=== PATIENT | female | born 1945 | race African-American/Black ===

== ENCOUNTER → 2017-02-02 | Outpatient (CLI) | payer OTHER ==
[~2017-02-02] VITALS: Ht 157.5 cm; Wt 73.7 kg
[~2017-02-02] MED LIST: AGGRENOX 25 MG1 EACH PO; AGGRENOX CAPSU1 EACH PO; ALBUTEROL2.5 MG/0.5 INH; ARTHRITIS PAIN650 M3 PO; CENTRUM SILVER1 EAC4 PO; CYCLOBENZAPRINE5 MG; CYCLOBENZAPRINE5 MG PO; CYMBALTA20 MG PO; FOLIC ACID1 MG PO; HYDROCHLOROTH12.5 MG PO; HYDROCODONE-AP1 EAC6 PO; IOPHEN C NR PO; KLOR-CON20 MEQ PO; MACROBID 100 M100 M1 PO; METHOTREXATE 22.5 MG PO; MOBIC7.5 MG PO; NASACORT10.8 ML NS; NEXIUM40 MG PO; PREDNISONE 5 MG5 MG PO; PROBIOTIC1 EAC1 PO; SIMVASTATIN40 MG PO; SYNTHROID75 MCG PO; TRAMADOL 50 MG50 MG PO; VAGIFEM10 MCG; VALTREX 500 MG500 MG PO; VOLTAREN GEL 1100 G2 TOP; ZOFRAN ODT4 MG PO
--- NOTE | ~2017-02-02 | HPC ---
[facility] [place] [address] PAIN MANAGEMENT CONSULTATION Name: JOSE ENRIQUE MILES Room #: REG JONATHAN Naylor#: [id number] Admission: 02/02/17 Attend Phys: Dg Hou DO Discharge: Date of : 43 Report #: [id number] THIS REPORT FOR: //name// CC: Mark Hou The patient is a delightful 72-year-old female, prior seen in the pain clinic last August for symptomatic lumbar radiculopathy. She was given epidural injection at that time, returns to pain clinic today noting that the prior injection afforded very good transient relief, 60% relief, the pain began to come back in October without antecedent trauma or overuse. Notes pain is primarily low back, bilateral buttock, sharp and constant, rates as a 7/10, exacerbated with climbing stairs, walking and general activity. PHYSICAL EXAMINATION: Shows a pleasant 72-year-old female, BMI is 29.7 kg/m2. Vital signs are stable as noted in the EMR. Rises from chair using armrest. Lumbar flexion is limited to about 60 degrees. Diffuse tenderness across the low back, positive straight leg raise on the left, slight decreased left leg strength. The patient has been off of her Aggrenox for 7 days now. ASSESSMENT: 1. Symptomatic lumbar radiculopathy secondary to spinal stenosis, history of transient ischemic attacks, and component of myofascial pain. 2. Acute exacerbation of lumbar radiculopathy secondary to spinal stenosis. RECOMMENDATION: 1. The patient has been started on Cymbalta 20 mg from her general activities therapist physician, strongly encouraged her to increase to the 30 mg dose, which has also been prescribed. I have taken the liberty of writing for tramadol 50 mg up to 4 times a day with Tylenol. She has had this in the past with some efficacy. She is not taking Meloxicam due to the Aggrenox. Again, hold the Meloxicam due to the Aggrenox, renew tramadol 50 mg up to 4 times a day with Tylenol. She can use this along with the 30 mg Cymbalta, the amount of serotonin reuptake should not put her in nature of serotonin syndrome. 2. Lumbar epidural injection under fluoroscopy today. PROCEDURE: Lumbar epidural steroid injection. PROCEDURE NOTE: After both written and informed consent to include risk of spinal cord damage, increased pain, weakness and dural puncture, the patient was taken to the fluoroscopy suite, placed in the prone position. After sterile prep and drape, a skin wheal with lidocaine was raised. A 22-gauge epidural Tuohy needle was inserted in the midline at L5-S1 with good loss to resistance. Negative aspiration for cerebrospinal fluid or blood was noted. Then 1 mL [address] [address] PAIN MANAGEMENT CONSULTATION Name: JOSE ENRIQUE MILES Room #: REG CLChristine Naylor#: [id number] Admission: 02/02/17 Attend Phys: Dg Hou DO Discharge: Date of : 44 Report #: [id number] Omnipaque under biplanar fluoroscopy showed good spread within the epidural space. This was followed with 80 mg of triamcinolone plus 1 mL of 1.5% preservative-free Xylocaine, 0.5 mL Xylocaine was then injected to flush the needle; it was removed. The patient was monitored for an appropriate period of time and discharged in good and stable condition. Resume Aggrenox tomorrow. Follow up as needed. <ELECTRONICALLY SIGNED> By: Dg Hou DO 02/08/17 0738 1548 0151 Dg Hou DO /nt
[2017-02-02 13:44] VITALS: BP 161/74
== END | disposition home or self-care (01) ==
LOC: PAIN 06:50
DX: M48.06 Spinal stenosis, lumbar region (principal); M79.1 Myalgia; Z86.73 Personal history of transient ischemic attack (TIA), and cerebral infarction without residual deficits; Z87.891 Personal history of nicotine dependence

== ENCOUNTER → 2017-02-10 | Outpatient (CLI) | payer OTHER | LOC: MRI 14:11 | DX: E23.6 Other disorders of pituitary gland (principal); R51 Headache ==

== ENCOUNTER → 2017-02-20 | Outpatient (CLI) | payer OTHER | LOC: RAD 01:56 | DX: Z12.31 Encounter for screening mammogram for malignant neoplasm of breast (principal) ==

== ENCOUNTER → 2017-06-22 | Outpatient (CLI) | payer OTHER ==
[~2017-06-22] VITALS: Ht 157.5 cm; Wt 75.5 kg
--- NOTE | ~2017-06-22 | HPC ---
[facility] [place] [address] PAIN MANAGEMENT CONSULTATION Name: JOSE ENRIQUE MILES Room #: REG JONATHAN Naylor#: [id number] Admission: 06/22/17 Attend Phys: Dg Hou DO Discharge: Date of : 43 Report #: [id number] THIS REPORT FOR: //name// CC: Mark Hou The patient is a 72-year-old female, prior seen in the pain clinic back in January, given epidural injection, off of Aggrenox for 7 days. She returns to pain clinic today noting that injection afforded significant relief of her low back and bilateral (right greater than left) pain. The patient specifically got 80% relief with very little discomfort until April the pain began to recur. She denies antecedent trauma or overuse. She notes the pain is in the low back, right greater than left leg, exacerbated with standing, walking and bending, stairs does seem to exacerbate pain. PHYSICAL EXAMINATION: Shows 72-year-old female, BMI is 30.4 kilograms per meter squared. Blood pressure is modestly elevated 162/76, pulse 64, respirations 16. Rises from chair using armrest, modestly antalgic gait. Grossly positive straight leg raise at 30 degrees on the right. Slight decreased right hip flexion strength. Reviewed diagnostic findings from October 2015 noting grade 1 anterolisthesis at L4-L5 with marked facet changes. ASSESSMENT: Symptomatic lumbar radiculopathy. RECOMMENDATIONS: 1. Epidural injection under fluoroscopy today at L5-S1. 2. Resume Aggrenox tonight. 3. Follow up in 3 weeks for reevaluation. Discontinue Aggrenox for 7 days if symptoms are not completely abated. If however, she is doing well, we will have her simply cancel the appointment in 2 weeks. ASSESSMENT: Symptomatic lumbar radiculopathy secondary to spinal stenosis. PROCEDURE: Lumbar epidural steroid injection under fluoroscopy. PROCEDURE NOTE: After both written and informed consent to include risk of spinal cord damage, increased pain, weakness and dural puncture, the patient was taken to the fluoroscopy suite, placed in the prone position. After sterile prep and drape, a skin wheal with lidocaine was raised. A 22-gauge epidural Tuohy needle was inserted in the midline at L5-S1 with good loss to resistance. Negative aspiration for cerebrospinal fluid or blood was noted. Then 1 mL of Omnipaque under biplanar fluoroscopy showed good spread within the epidural space. This was followed with 80 mg of triamcinolone plus 1 mL of 1.5% preservative-free Xylocaine, 0.5 mL Xylocaine was then injected to flush the [address] [address] PAIN MANAGEMENT CONSULTATION Name: JOSE ENRIQUE MILES Room #: REG [facility] Dayday#: [id number] Admission: 06/22/17 Attend Phys: Dg Hou DO Discharge: Date of : 43 Report #: [id number] needle; it was removed. The patient was monitored for an appropriate period of time and discharged in good and stable condition. <ELECTRONICALLY SIGNED> By: Dg Hou DO 06/26/17 0746 1537 1621 Dg Hou DO /nt
[2017-06-22 12:44] VITALS: BP 162/76
== END | disposition home or self-care (01) ==
LOC: PAIN 02-23 09:21
DX: M54.16 Radiculopathy, lumbar region (principal); Z87.891 Personal history of nicotine dependence; Z79.899 Other long term (current) drug therapy

== ENCOUNTER → 2018-01-25 | Outpatient (CLI) | payer OTHER ==
[~2018-01-25] VITALS: Ht 157.5 cm; Wt 71.5 kg
[~2018-01-25] MED LIST changes: +CLARITIN10 MG PO; -CYMBALTA20 MG PO; +CYMBALTA30 MG PO; +FLONASE 0.05%50 MCG NASAL; +LIPITOR10 MG PO; -NASACORT10.8 ML NS; +NORCO 5-325 TA1 EAC1 PO; +OXYBUTYNIN 5 MG5 M2 PO; +VALACYCLOVIR500 MG PO
--- NOTE | ~2018-01-25 | HPC ---
[facility] [place] [address] PAIN MANAGEMENT CONSULTATION Name: JOSE ENRIQUE MILES Room #: REG JONATHAN Naylor#: [id number] Admission: 01/25/18 Attend Phys: Dg Hou DO Discharge: Date of : 43 Report #: [id number] THIS REPORT FOR: //name// CC: Mark Hou DATE OF SERVICE: 01/25/2018 PAIN CLINIC NOTE The patient is a 73-year-old female, prior seen in the pain clinic on 06/22/2017. She had an epidural injection L5-S1 with good improvement of baseline pain. She specifically notes 75% improvement for several months. 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 She notes pain is gradually coming back the last couple of months, but caring for her mother, she somewhat put off her own care. She notes currently pain is in the low back, bilateral legs, rates it as 7-8 on a VAS. Notes pain is exacerbated with standing, walking and general activity. She does get some relief with medication including tramadol p.r.n. I had last given her a prescription for tramadol 120 tablets with 2 refills nearly a year ago in January 2017. Again, it has been about a year since we last saw her. PHYSICAL EXAMINATION: Shows a 73-year-old female, BMI is 28.8 kilograms per meter squared. Blood pressure 143/66, pulse 66, respiration is 16. She rates her subjective pain score as 7-8 on a VAS. Rises from chair using armrest. New pain is a little different than her prior radicular pain which is more in the back. This pain is more in the left groin it is in an L3 pattern. She has a modestly antalgic gait. Left hip flexion strength is limited compared to the right. Passive rotation of the hip does exacerbate some pain as well. Gait is mildly ataxic. We reviewed her older MRI from October 2015 noting increasing subluxation of L4 on L5 with fairly significant stenosis at L3-L4 and L4-L5. (This had been compared to a prior study of 11/27/2014). With ongoing radicular symptoms, we have elected to request repeat MRI of the lumbar spine. Epidural injection under fluoroscopy, we will try a little higher level, prior injections at L5-S1 had helped with more L5 radicular pain with this new pain in the left groin. We will move forward with L3-L4 epidural injection under fluoroscopy. Follow up in 2 weeks for reevaluation. A note is made the patient has been offer Aggrenox for [address] [address] PAIN MANAGEMENT CONSULTATION Name: MILESJOSE ENRIQUE Room #: REG JONATHAN Naylor#: [id number] Admission: 01/25/18 Attend Phys: Dg Hou DO Discharge: Date of : 43 Report #: [id number] ASSESSMENT: Symptomatic lumbar radiculopathy secondary to spinal stenosis. PROCEDURE: Lumbar epidural injection under fluoroscopy. PROCEDURE NOTE: After both written and informed consent to include risk of spinal cord damage, increased pain, weakness and dural puncture, the patient was taken to the fluoroscopy suite, placed in the prone position. After sterile prep and drape, a skin wheal with lidocaine was raised. A 22-gauge epidural Tuohy needle was inserted in the midline at L3-L4 with good loss to resistance. Negative aspiration for cerebrospinal fluid or blood was noted. Then 1 mL of Omnipaque under biplanar fluoroscopy showed good spread within the epidural space. This was followed with 80 mg of triamcinolone plus 1 mL of 1.5% preservative-free Xylocaine, 0.5 mL Xylocaine was then injected to flush the needle; it was removed. The patient was monitored for an appropriate period of time and discharged in good and stable condition. The patient discharged in good and stable condition. Told to resume Aggrenox today. MRI next week if she does not get significant improvement with today's injection. <ELECTRONICALLY SIGNED> By: Dg Hou DO 01/26/18 0704 1539 2236 Dg Hou DO /nt
[2018-01-25 12:56] VITALS: BP 143/66
== END | disposition home or self-care (01) ==
LOC: PAIN 06:52
DX: M48.061 Spinal stenosis, lumbar region without neurogenic claudication (principal); G89.29 Other chronic pain; Z98.890 Other specified postprocedural states; Z87.891 Personal history of nicotine dependence; Z79.899 Other long term (current) drug therapy

== ENCOUNTER → 2018-02-07 | Outpatient (CLI) | payer OTHER | LOC: MRI 11:43 | DX: M47.896 Other spondylosis, lumbar region (principal); G89.29 Other chronic pain; N28.1 Cyst of kidney, acquired ==

== ENCOUNTER → 2018-03-01 | Outpatient (CLI) | payer OTHER ==
[~2018-03-01] MED LIST changes: -LIPITOR10 MG PO; -NORCO 5-325 TA1 EAC1 PO; -OXYBUTYNIN 5 MG5 M2 PO; -VALACYCLOVIR500 MG PO
== END ==
LOC: RAD 00:26
DX: Z12.31 Encounter for screening mammogram for malignant neoplasm of breast (principal)

== ENCOUNTER → 2018-03-14 | Outpatient (CLI) | payer OTHER | LOC: RAD 12:01 | DX: J47.9 Bronchiectasis, uncomplicated (principal) ==

== ENCOUNTER → 2018-05-25 | Outpatient (CLI) | payer OTHER ==
[~2018-05-25] VITALS: Ht 157.5 cm; Wt 71.2 kg
[~2018-05-25] MED LIST changes: +NORCO 5-325 TA1 EAC1 PO
--- NOTE | ~2018-05-25 | HPC ---
[facility] [place] [address] PAIN MANAGEMENT CONSULTATION Name: JOSE ENRIQUE MILES Room #: REG EMERALDChristine Robin.#: [id number] Admission: 05/25/18 Attend Phys: Dg Hou DO Discharge: Date of : 43 Report #: [id number] THIS REPORT FOR: //name// CC: Mark Hou The patient is a 73-year-old female, last seen in the pain clinic on 02/16/2018, given epidural injection at that time. She returns to the pain clinic today noting that the prior injection afforded very good relief, per the patient some 80% relief for several months. Pain has gradually begun to recur without antecedent trauma and overuse. Pain is in the low back, buttock and leg, radiates into the left groin down to the ankle, exacerbated with standing and walking, rates as 7.5 on a VAS. PHYSICAL EXAMINATION: Shows pleasant 73-year-old female, BMI is 28.7 kilograms per meter squared. Vital signs stable as noted in the EMR. Rises from chair using armrest. Modestly antalgic gait. Grossly positive straight leg raise at 30 degrees on the left, slight decreased left hip flexion strength. ASSESSMENT: Symptomatic lumbar radiculopathy by clinical exam and history. RECOMMENDATIONS: 1. We will refer the patient for physical therapy for home exercise regimen to include core stability and leg strengthening. 2. Epidural injection under fluoroscopy today. 3. Continue current medication unchanged including tramadol as needed for pain, in fact, I have taken the liberty of writing for small course of hydrocodone 5/325, limit 45 tablets to take as needed for significant pain. ASSESSMENT: Symptomatic lumbar radiculopathy secondary to spinal stenosis. PROCEDURE: Lumbar epidural injection under fluoroscopy. PROCEDURE NOTE: After both written and informed consent to include risk of spinal cord damage, increased pain, weakness and dural puncture, the patient was taken to the fluoroscopy suite, placed in the prone position. After sterile prep and drape, a skin wheal with lidocaine was raised. A 22-gauge epidural Tuohy needle was inserted in the midline at L3-L4 with good loss to resistance. Negative aspiration for cerebrospinal fluid or blood was noted. Then 1 mL of Omnipaque under biplanar fluoroscopy showed good spread within the epidural space. This was followed with 80 mg of triamcinolone plus 1 mL of 1.5% preservative-free Xylocaine, 0.5 mL Xylocaine was then injected to flush the [address] [address] PAIN MANAGEMENT CONSULTATION Name: JOSE ENRIQUE MILES Room #: REG [facility] Dayday#: [id number] Admission: 05/25/18 Attend Phys: Dg Hou DO Discharge: Date of : 43 Report #: [id number] needle; it was removed. The patient was monitored for an appropriate period of time and discharged in good and stable condition. <ELECTRONICALLY SIGNED> By: Dg Hou DO 05/28/18 0659 1200 [id number] Dg Hou DO /nt
[2018-05-25 11:07] VITALS: BP 155/72
== END | disposition home or self-care (01) ==
LOC: PAIN
DX: M54.16 Radiculopathy, lumbar region (principal); M48.061 Spinal stenosis, lumbar region without neurogenic claudication; Z79.899 Other long term (current) drug therapy; Z79.51 Long term (current) use of inhaled steroids; Z87.891 Personal history of nicotine dependence

== ENCOUNTER → 2018-08-10 | Outpatient (CLI) | payer OTHER ==
[~2018-08-10] VITALS: Ht 157.5 cm; Wt 72.1 kg
[~2018-08-10] MED LIST changes: +LIPITOR10 MG PO; +OXYBUTYNIN 5 MG5 M2 PO; +VALACYCLOVIR500 MG PO
--- NOTE | ~2018-08-10 | HPC ---
[facility] [address] [place] [address] PAIN MANAGEMENT CONSULTATION Name: JOSE ENRIQUE MILES Room #: REG JONATHAN Dayday#: [id number] Admission: 08/10/18 Attend Phys: Addis Haskins MD Discharge: Date of : 43 Report #: [id number] THIS REPORT FOR: //name// CC: Mark Haskins DATE OF SERVICE: 08/10/2018 CHIEF COMPLAINT: Right lower back and leg pain. HISTORY OF PRESENT ILLNESS: The patient is a 73-year-old female who has been followed in the pain clinic. She has been followed by Dr. Dg Hou. This is my first visit with the patient. She returns to the pain clinic today with pain and discomfort involving her low back and right leg. She has had pain that is radiating down into the lower back, buttocks and has rated it as high as 7.5. Her pain has progressively gotten worse over the years. She has undergone epidural steroid injections in the past and noted some benefit from these. She has had cramping sensation down in her calf. 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 Lifting and doing these activities exacerbate her discomfort. Notes her pain is worse when she wakes in the morning. Standing and walking are problematic. She does try to exercise and do stretches which have been provided by a book which she has been reviewing. She has undergone physical therapy. Notes that she has continued to have pain in both lower extremities and in her hips. ALLERGIES: No known drug allergies. MEDICATIONS: Ultram 50 mg q.i.d., Claritin 10 mg, Cymbalta 30 mg, multivitamins, Centrum Silver, Aggrenox 25/200 mg capsules, arthritis release 650 mg, Tylenol, Flonase 0.05%, albuterol 2.5/0.5 mL, Voltaren gel 1% to hands q.i.d., Flexeril 5 mg, potassium 20 mEq, Zocor 40 mg, levothyroxine 75 mcg, folic acid 1 mg, Nexium 40 mg, methotrexate 2.5 mg. PAST MEDICAL HISTORY: Rheumatoid arthritis, hypothyroidism, ____, GERD, asthma, status post TIA. PAST SURGICAL HISTORY: Tonsillectomy 1971, hysterectomy in 12/08/1986. SOCIAL HISTORY: She is retired. REVIEW OF SYSTEMS: Night sweats, wears glasses, cataracts, ear aches, TIA, insomnia. PAIN CLINIC ASSESSMENT: 1. Osteoarthritis. The patient is not being treated for osteoarthritis, [place] [address] PAIN MANAGEMENT CONSULTATION Name: JOSE ENRIQUE MILES Room #: REG [facility].#: [id number] Admission: 08/10/18 Attend Phys: Addis Haskins MD Discharge: Date of : 43 Report #: [id number] have rheumatoid arthritis. 2. Vital Signs: Blood pressure 164/70, heart rate is 58, respiratory rate 16, room air saturations 100%. Pain intensity 8-9/10. 3. Fall history: The patient has not fallen in the last 3 months. 4. Blood thinner. The patient is on Aggrenox, has had transient ischemic attack. 5. Hypertension. The patient is being treated for hypertension. 6. Tobacco: The patient denies use of tobacco, alcohol. The patient denies use of alcoholic beverages. Height was 5 feet 2-1/2 inches, weight 163 pounds. PHYSICAL EXAMINATION: GENERAL: The patient is a well-developed, well-nourished white female. No apparent distress. HEENT: Normocephalic, atraumatic. Extraocular eye muscles intact. Sclerae nonicteric. Mucous membranes moist. NECK: Supple. HEART: Regular rate and rhythm. PULMONARY: No respiratory distress. ABDOMEN: Nontender. EXTREMITIES: The patient has pain and discomfort radiating down into her legs bilaterally. Positive straight leg raise on the right. IMPRESSION: 1. Lumbar radiculopathy. 2. Rheumatoid arthritis. 3. Hypothyroidism. 4. ____. 5. GERD. 6. Asthma. 7. Status post TIA. RECOMMENDATIONS: We discussed treatment options with the patient. Risks and benefits of an epidural steroid injection were discussed. Possible complications of the procedure were reviewed. They could include, but are not limited to infection, increased muscle soreness, headache, bleeding, worsening of pain, no improvement in pain. The patient elects to proceed. PROCEDURE NOTE: The patient was placed on the examination table. Her back was sterilely prepped with a Betadine solution. A 0.25% bupivacaine was infiltrated. A 17-gauge Tuohy with loss of resistance technique was used to gain access of the epidural space. There was no CSF, heme or paresthesia. A total of 80 mg Depo-Medrol, 40 mg triamcinolone were infiltrated at the right paracentral location of needle. The patient tolerated the procedure well. There were no complications. She will followup in the future as needed. We [address] [address] PAIN MANAGEMENT CONSULTATION Name: JOSE ENRIQUE MILES Room #: ALEKSANDR Naylor#: [id number] Admission: 08/10/18 Attend Phys: Addis Haskins MD Discharge: Date of : 43 Report #: [id number] would like to thank you for letting us participate in her care. We hope she continues to improve. <ELECTRONICALLY SIGNED> By: Addis Haskins MD 09/03/18 1124 0849 1154 Addis Haskins MD /[facility]
[2018-08-10 12:41] VITALS: BP 162/67
== END | disposition home or self-care (01) ==
LOC: PAIN 07:05
DX: M54.16 Radiculopathy, lumbar region (principal); G89.29 Other chronic pain; Z87.891 Personal history of nicotine dependence; Z79.899 Other long term (current) drug therapy

== ENCOUNTER → 2018-10-17 | Outpatient (CLI) | payer OTHER ==
[~2018-10-17] VITALS: Ht 160 cm; Wt 74.3 kg
[2018-10-17 13:59] VITALS: BP 149/70
== END ==
LOC: PAIN 05:55
DX: M54.5 Low back pain (principal); M25.551 Pain in right hip; M25.552 Pain in left hip; Z79.899 Other long term (current) drug therapy

== ENCOUNTER → 2018-11-28 | Outpatient (CLI) | payer OTHER | LOC: CAT 08:42 | DX: J32.9 Chronic sinusitis, unspecified (principal) ==

== ENCOUNTER → 2018-12-05 | Outpatient (CLI) | payer OTHER ==
[~2018-12-05] VITALS: Ht 152.4 cm; Wt 75.8 kg
[~2018-12-05] MED LIST changes: +CALCIUM 600 +1 EAC1 PO; +VITAMINC500 PO
--- NOTE | ~2018-12-05 | HPC ---
[address] [place] [address] PAIN MANAGEMENT CONSULTATION Name: JOSE ENRIQUE MILES Room #: REG EMERALDChristine Naylor#: [id number] Admission: 12/05/18 Attend Phys: Addis Haskins MD Discharge: Date of : 43 Report #: [id number] THIS REPORT FOR: //name// CC: Mark Haskins DATE OF SERVICE: 12/05/2018 CHIEF COMPLAINT: Return for another injection. The pain has been doing well for a number of months. FOLLOWUP HISTORY: The patient is a 73-year-old female who has been followed in the pain clinic because of lumbar radiculopathy. She returns today indicating that the epidural steroid injection, which she received in July has continued to be beneficial. She notes now that her pain is beginning to start increasing. Overall, things have been going relatively well. She has been having pain that radiated down into her buttocks. She feels that the pain now has risen to the level of about 7.5. This was the level where it was when she underwent an epidural steroid injection. She feels that now she continues to have pain in the lower portion of her back. It radiates down into both the left and the right buttocks. Left seems to be more problematic. This also progresses down to the level of her calf. She notes that the pain is exacerbated by climbing stairs, standing for a prolonged period of time, walking as well as other activities. Notes that medications, rest and hot showers can be influenced and in decreasing her discomfort for some time. Overall, she has had no complication from the last injection and would like to proceed with an injection today. ALLERGIES: No known drug allergies. CURRENT MEDICATIONS: Ultram 50 mg q.i.d., Claritin 10 mg, Cymbalta 30 mg, multivitamins, Centrum Silver, Aggrenox 25/200 mg capsules, arthritis released, Tylenol 650 mg, Flonase 0.05%, albuterol 2.5/0.5 meals, Voltaren gel 1% to the hands q.i.d., Flexeril 5 mg, potassium 20 mEq, Zocor 40 mg, levothyroxine 75 mcg, and folic acid 1 mg, Nexium 40 mg, methotrexate 2.5 mg. PAIN CLINIC ASSESSMENT/PQRS: 1. Osteoarthritis. The patient is being treated for osteoarthritis or rheumatoid arthritis. Pain intensity 7.5/10. 2. Fall risk. The patient has not fallen in the last 3 months. 3. Height 5 feet 0 inches, BMI is 32, weight 167 pounds. Blood pressure 141/65, pulse 57, respiratory rate 16, room air saturation is 100%. 4. Blood thinner. The patient is on a blood thinning medication aspirin/dipyridamole (Aggrenox). 5. Hypertension. The patient is being treated for hypertension. 6. Opioid greater than 6 weeks. The patient is receiving tramadol on a regular [address] [address] PAIN MANAGEMENT CONSULTATION Name: JOSE ENRIQUE MILES Room #: REG Christine Naylor#: [id number] Admission: 12/05/18 Attend Phys: Addis Haskins MD Discharge: Date of : 43 Report #: [id number] basis. 7. Risk assessment tool for opioids low. 8. Functional assessment tool . 9. Recreational drug use. The patient denies use of recreational drugs. 10. Tobacco: The patient never smoked: The patient is a former smoker. 11. Alcohol: The patient denies use of alcoholic beverages. PHYSICAL EXAMINATION: GENERAL: The patient is a well-developed well-nourished black female. Her affect is appropriate. Speech is fluent. HEAD, EYES, EARS, NOSE, AND THROAT: Normocephalic, atraumatic. Extraocular eye muscles intact. Sclerae is nonicteric. Mucous membranes are moist. NECK: Without adenopathy or JVD. The patient was wearing glasses. HEART: Regular rate. S1, S2, without pulmonary complaints. LUNGS: Clear to auscultation. ABDOMEN: Nontender. Bowel sounds present. EXTREMITIES: Upper extremity muscle strength is judged to be 5-/5 for the major muscle groups. Lower extremity muscle strength in the legs showed to be 5-/5 for the mid lower extremity. The patient does walk with a cane. Has pain and discomfort in the posterior portion of her legs with radiation down into both legs involving the calf. Positive straight leg raises. IMPRESSION: 1. History of lumbar radiculopathy. 2. Rheumatoid arthritis. 3. Hypothyroidism. 4. Gastroesophageal reflux. 5. Asthma. 6. Post-transient ischemic attack. RECOMMENDATIONS: We discussed treatment options with the patient. Risks and benefits of an epidural steroid injection were discussed. Possible complications of the procedure, which could include but are not limited to infection, worsening of pain, no improvement in pain, nerve damage, spinal headache. The patient elects to proceed. PROCEDURE NOTE: The patient was taken to the procedure area. She was assisted in getting on the examination table. She was placed in the prone position. Fluoroscopy using anterior, posterior as well as lateral viewing were implemented. Her back was sterilely prepped with a Betadine solution. A 0.25% bupivacaine was infiltrated in the L5-S1 area on the right side. A midline approach was used. A 0.25% bupivacaine was infiltrated. A 17-gauge Tuohy with loss of resistance technique was used to gain access to the epidural space after appropriate placement. There was no CSF, heme or paresthesia. Total of 80 mg Depo-Medrol, 40 mg triamcinolone and 2 mL of 0.25% bupivacaine was injected. The patient tolerated the procedure well. There were no complications. We hope [address] [address] PAIN MANAGEMENT CONSULTATION Name: MILESJOSE ENRIQUE [id number] Admission: 12/05/18 Attend Phys: Addis Haskins MD Discharge: Date of : 43 Report #: [id number] she continues to improve. A script for tramadol 50 mg 1 p.o. q.i.d. has been written. We would like to thank you for letting us to participate in her care and 2 refills of tramadol were provided. By: [id number] Addis Haskins MD /BOBBY
[2018-12-05 11:02] VITALS: BP 141/65
--- NOTE | 2018-12-05 11:09 | NUR ---
Pain Clinic Assessment: 1. History of Osteoarthritis: Not Applicable History of Rheumatoid Arthritis: Not Applicable 2. Height: 5 ft. in. 152.4 cm. Weight: 167.0 lb. oz. 75.751 kg. Patient's BMI: 32.6 3. Vital Signs: BP: 141/65 Pulse: 67 Resp: 16 Temp: 02 Sat: 100 ECG Mon: 4. Pain Intensity: 7.5 5. Fall Risk: Dizziness: N Needs help standing or walking: N Fallen in the last 3 months: N Fall risk comments: 6. Patient on Blood Thinner: ASA/Dipyridamole(Aggrenox 7. History of Hypertension: Y 8. Opioid Therapy greater than 6 weeks: N Opiate Contract Signed: 9. Risk Assessment Tool Provided: LOW-1 10. Functional Assessment Tool: 11. Recreational Drug Use: Never Drug Type: Tobacco Use: Former Smoker Tobacco Type: Amount or Packs/day: How Many Years: Alcohol Use: No Frequency: Quant:
== END | disposition home or self-care (01) ==
LOC: PAIN 07:17
DX: M54.16 Radiculopathy, lumbar region (principal); G89.29 Other chronic pain; I10 Essential (primary) hypertension; M06.9 Rheumatoid arthritis, unspecified; E03.9 Hypothyroidism, unspecified; K21.9 Gastro-esophageal reflux disease without esophagitis; J45.909 Unspecified asthma, uncomplicated; Z86.73 Personal history of transient ischemic attack (TIA), and cerebral infarction without residual deficits; Z98.890 Other specified postprocedural states; Z79.899 Other long term (current) drug therapy; Z79.01 Long term (current) use of anticoagulants; Z87.891 Personal history of nicotine dependence; Z79.891 Long term (current) use of opiate analgesic

== ENCOUNTER → 2019-03-04 | Outpatient (CLI) | payer OTHER ==
[~2019-03-04] MED LIST changes: +APAP650 PO; +HYDROCODONE-AP1 EA11 PO
== END ==
LOC: RAD 03:15
DX: Z12.31 Encounter for screening mammogram for malignant neoplasm of breast (principal)

== ENCOUNTER → 2019-03-06 | Outpatient (CLI) | payer OTHER ==
[~2019-03-06] VITALS: Ht 157.5 cm; Wt 75.6 kg
--- NOTE | ~2019-03-06 | HPC ---
[facility] [address] [place] [address] PAIN MANAGEMENT CONSULTATION Name: JOSE ENRIQUE MILES Room #: REG EMERALDChristine Naylor#: [id number] Admission: 03/06/19 ������������������ Attend Phys: Addis Haskins MD Discharge: ������������������ Date of : 43 Report #: [id number] THIS REPORT FOR: //name// CC: Mark Haskins DATE OF SERVICE: 03/06/2019 FOLLOWUP HISTORY: "I would like to get another injection. It was helpful." HISTORY: The patient is a 74-year-old female who has been followed in the Pain Clinic because of chronic low back pain. She has undergone epidural steroid injections and found them beneficial. She returns today with a desire to undergo another epidural steroid injection. She is having pain and discomfort that is radiating down in the low portion of her back, in the left as well as the right leg. Both calves are involved. She feels that the tramadol is not as effective. She would like to see whether use of hydrocodone could be more effective. ALLERGIES: No known drug allergies. CURRENT MEDICATIONS: Ultram 50 mg q.i.d., Claritin 10 mg, Cymbalta 30 mg, multivitamin, Centrum Silver, Aggrenox 25/200 capsules, Arthritis Relief Tylenol 650 mg, Flonase 0.05%, albuterol 2.5/0.5 with meals, Voltaren gel 1% to the hands q.i.d., Flexeril 5 mg, potassium 20 mEq, Zocor 40 mg, levothyroxine 75 mcg, folic acid 1 mg, Nexium 40 mg, and methotrexate 2.5. PAIN CLINIC ASSESSMENT/PQRS: 1. The patient is not being treated for osteoarthritis ____ rheumatoid arthritis. 2. Height 5 feet 2 inches, weight 166 pounds, BMI is 30.5. 3. Vital signs: Blood pressure 155/65, pulse 63, respiratory rate 16, room air saturation 100%. 4. Pain intensity: 8/10. 5. Fall risk: The patient has not fallen in the last 3 months. 6. Blood thinner: The patient is on aspirin/dipyridamole (Aggrenox). 7. History of hypertension: The patient is being treated for hypertension. 8. Opioids greater than 6 weeks: The patient receives her medication from one source, [facility] Clinic. She is using tramadol. 9. Risk assessment tool: Low for opioid use. 10. Functional assessment tool: . 11. Recreational drug use. The patient denies use of recreational drugs. 12. Tobacco: The patient denies use of tobacco. PHYSICAL EXAMINATION: GENERAL: The patient is a well-developed, well-nourished black female. She [address] [address] PAIN MANAGEMENT CONSULTATION Name: MILESJOSE ENRIQUE Room #: REG JONATHAN Naylor#: [id number] Admission: 03/06/19 ������������������ Attend Phys: Addis Haskins MD Discharge: ������������������ Date of : 43 Report #: [id number] appears her stated age. She is alert and oriented x 3. Affect is appropriate. Speech is fluent. HEENT: Normocephalic, atraumatic. Extraocular eye muscles intact. Sclerae nonicteric. Mucous membranes are moist. The patient is wearing glasses. NECK: Without adenopathy or JVD. HEART: Regular rate. S1 and S2. LUNGS: Clear to auscultation. ABDOMEN: Nontender. Bowel sounds present. MUSCULOSKELETAL: Upper extremity muscle strength judged to be 5-/5 for the major muscle groups in the upper extremity. The patient has been walking with a cane. She complains of some pain and discomfort in the posterior portion of her legs with radiation down into both legs in the L5-S1 area. She has positive straight leg raises. IMPRESSION: 1. History of lumbar radiculopathy, L5-S1. 2. Rheumatoid arthritis. 3. Hypothyroidism. 4. Gastroesophageal reflux. 5. Asthma. 6. Post transient ischemic attack. RECOMMENDATIONS: We discussed treatment options with the patient. Risks and benefits of an epidural steroid injection in the lumbar area were discussed. Possible complications of the procedure which could include but are not limited to infection, worsening pain, no improvement in pain were discussed, and the patient elects to proceed. PROCEDURE NOTE: The patient was taken to the procedure area. She was assisted in getting on the examination table. Her back was sterilely prepped with a Betadine solution. At the L5-S1 area, 0.25% bupivacaine was infiltrated using a 25-gauge needle. The anterior, posterior as well as lateral viewing with fluoroscopy was undertaken. After the L5-S1 area had been infiltrated, a 17-gauge Tuohy with loss of resistance technique was used to gain access to the epidural space. There was no CSF, heme or paresthesia. Aspiration was negative. A total of 80 mg Depo-Medrol, 40 mg triamcinolone and 2 mL of 0.25% bupivacaine was injected. The patient tolerated the procedure well. She remained in the Pain Clinic for an appropriate amount of time. A total of about 15 seconds fluoroscopy time was used. The patient has been given a script for hydrocodone 7.5 mg. She will take 1 tablet per day. Hopefully, this will help her during those times that her pain is quite problematic. [address] [address] PAIN MANAGEMENT CONSULTATION Name: JOSE ENRIQUE MILES Room #: REG [facility] Dayday#: [id number] Admission: 03/06/19 ������������������ Attend Phys: Addis Haskins MD Discharge: ������������������ Date of : 43 Report #: [id number] We would like to thank you for letting us participate in her care. We hope she continues to improve. ��������������������������������������������� ���������������������������������������� By: ��������������������������������������������� 1458 0039 Addis Haskins MD /pnocho
[2019-03-06 11:10] VITALS: BP 155/63
--- NOTE | 2019-03-06 11:35 | NUR ---
Pain Clinic Assessment: 1. History of Osteoarthritis: Not Applicable History of Rheumatoid Arthritis: Not Applicable 2. Height: 5 ft. 2 in. 157.5 cm. Weight: 166.6 lb. oz. 75.569 kg. Patient's BMI: 30.5 3. Vital Signs: BP: 155/63 Pulse: 63 Resp: 16 Temp: 02 Sat: 100 ECG Mon: 4. Pain Intensity: 8-9 5. Fall Risk: Dizziness: N Needs help standing or walking: Y Fallen in the last 3 months: N Fall risk comments: 6. Patient on Blood Thinner: ASA/Dipyridamole(Aggrenox 7. History of Hypertension: Y 8. Opioid Therapy greater than 6 weeks: N Opiate Contract Signed: 9. Risk Assessment Tool Provided: LOW-1 10. Functional Assessment Tool: 11. Recreational Drug Use: Never Drug Type: Tobacco Use: Former Smoker Tobacco Type: Amount or Packs/day: How Many Years: Alcohol Use: No Frequency: Quant:
== END | disposition home or self-care (01) ==
LOC: PAIN 06:58
DX: M54.16 Radiculopathy, lumbar region (principal); G89.29 Other chronic pain; M06.9 Rheumatoid arthritis, unspecified; E03.9 Hypothyroidism, unspecified; K21.9 Gastro-esophageal reflux disease without esophagitis; J45.909 Unspecified asthma, uncomplicated; Z86.73 Personal history of transient ischemic attack (TIA), and cerebral infarction without residual deficits; Z79.899 Other long term (current) drug therapy; Z79.82 Long term (current) use of aspirin; Z98.890 Other specified postprocedural states

== ENCOUNTER → 2019-08-16 | Outpatient (CLI) | payer OTHER ==
[~2019-08-16] VITALS: Ht 157.5 cm; Wt 74.4 kg
[2019-08-16 11:13] VITALS: BP 139/56
--- NOTE | 2019-08-16 11:14 | NUR ---
Pain Clinic Assessment: 1. History of Osteoarthritis: SPINE HIPS History of Rheumatoid Arthritis: DENIES 2. Height: 5 ft. 2 in. 157.5 cm. Weight: 164.0 lb. oz. 74.390 kg. Patient's BMI: 30.0 3. Vital Signs: BP: 139/56 Pulse: 62 Resp: 14 Temp: 02 Sat: 99 ECG Mon: 4. Pain Intensity: 8 5. Fall Risk: Dizziness: N Needs help standing or walking: N Fallen in the last 3 months: N Fall risk comments: 6. Patient on Blood Thinner: ASA/Dipyridamole(Aggrenox 7. History of Hypertension: Y 8. Opioid Therapy greater than 6 weeks: N Opiate Contract Signed: 9. Risk Assessment Tool Provided: LOW-1 10. Functional Assessment Tool: 11. Recreational Drug Use: Never Drug Type: Tobacco Use: Former Smoker Tobacco Type: Amount or Packs/day: How Many Years: Alcohol Use: No Frequency: Quant:
--- NOTE | 2019-08-30 08:26 | HPC ---
[facility] [address] [place] [address] PAIN MANAGEMENT CONSULTATION Name: JOSE ENRIQUE MILES Room #: REG JONATHAN Dayday#: [id number] Admission: 08/16/19 Attend Phys: Addis Haskins MD Discharge: Date of : 43 Report #: [id number] THIS REPORT FOR: //name// CC: Mark Haskins DATE OF SERVICE: 08/16/2019 CHIEF COMPLAINT: "Pain in the lower back and down into the legs has returned. I have been off the Aggrenox for 7 days. I would like to get another injection." HISTORY: The patient is a 74-year-old female who has been followed in the pain clinic. As you recall, she suffers from lumbar radiculopathy. Epidural injections have been beneficial. She has noted in the last few weeks some increased amount of pain. She has returned today with the hopes of undergoing another epidural steroid injection to improve her level of comfort. She has had no complication from the past injections. As you recall, her mother some time ago. She is more independent at this point because she does not have to take care of her mother, but still has pain and some discomfort. She feels that tramadol is helpful in decreasing her pain and has used hydrocodone on occasion as well. She would like to have these medications renewed. ALLERGIES: No known drug allergies. CURRENT MEDICATIONS: Ultram 50 mg 1 p.o. q.i.d., Claritin 10 mg, Cymbalta 30 mg, multivitamin, Centrum Silver, Aggrenox 225/200 mg, arthritis relief Tylenol 650 mg, Flonase 0.05% albuterol 2.5/0.5 with meals, Voltaren gel 1% to the hands q.i.d., Flexeril 5 mg, potassium 20 mEq, Zocor 40 mg, levothyroxine 75 mg, folic acid 1 mg, Nexium 40 mg, methotrexate 2.5 mg. PAIN CLINIC ASSESSMENT AND PQRS: 1. The patient is not being treated for osteoarthritis or rheumatoid arthritis. 2. Height 5 feet 2 inches, weight 164 pounds, BMI is 30. 3. Vital signs: Blood pressure 139/56, pulse 62, respiratory rate 14, room air saturation 99%. 4. Pain intensity 06/29. 5. Fall history: The patient has not fallen in the last 3 months. 6. Blood thinner. The patient is on a blood thinning medication, Aggrenox. She has stopped taking this medication with the thoughts of undergoing an epidural injection. 7. Hypertension. The patient is being treated for hypertension. 8. Opioids greater than 6 weeks. The patient uses some opioid medications on a limited basis. 9. Risk assessment tool, low for opioid use. 10. Functional assessment tool . [address] [address] PAIN MANAGEMENT CONSULTATION Name: SAM MILESGENIE Osuna Room #: REG JONATHAN Naylor#: [id number] Admission: 08/16/19 Attend Phys: Addis Haskins MD Discharge: Date of : 43 Report #: [id number] 11. Recreational drug use. The patient denies. 12. Tobacco: The patient is a former smoker. 13. Alcohol. The patient denies use of alcoholic beverages. PHYSICAL EXAMINATION: GENERAL: The patient is a well-developed, well-nourished black female. She is alert and oriented x 3. Her affect is appropriate. Speech is fluent. HEENT: Normocephalic, atraumatic. Extraocular eye muscles intact. The patient wears glasses. NECK: Without adenopathy or JVD. HEART: Regular rate. S1, S2. LUNGS: Clear to auscultation. ABDOMEN: Nontender. Bowel sounds present. MUSCULOSKELETAL: Upper extremities: Upper extremity muscle strength judged to be 5/5 for the major muscle groups in the upper extremity. The patient has some pain and discomfort. In the past, she did walk with a cane. She is having pain that is radiating down into the lower portion of her back and into both legs in the L5-S1 dermatomal distribution. Straight leg raises are positive. IMPRESSION: 1. History of lumbar radiculopathy, L5-S1. 2. Rheumatoid arthritis. 3. Hypothyroidism. 4. Gastroesophageal reflux. 5. Asthma. 6. Transient ischemic attack. RECOMMENDATIONS: We discussed treatment options with the patient. Risks and benefits of an epidural steroid injection were discussed. They include but are not limited to infection, worsening pain, no improvement in pain, nerve damage, muscles discomfort and the patient elects to proceed. PROCEDURE NOTE: The patient was taken to the procedure area. She was then assisted in getting on the examination table. Her back was sterilely prepped with a Betadine solution. At the L5-S1 area, 0.25% bupivacaine was infiltrated using a 25-gauge needle. The anterior and posterior areas were viewed using fluoroscopy. After appropriate positioning 0.25% bupivacaine was infiltrated in the L5-S1 area. A 17-gauge Tuohy with loss of resistance technique was then again advanced without evidence of CSF, heme or paresthesia. A total of 80 mg Depo-Medrol, 40 mg triamcinolone and 2 mL of 0.25% bupivacaine was injected. The patient tolerated the procedure well. There were no complications. Approximately 12 seconds fluoroscopy time was about approximately 12 seconds fluoroscopy time was used. The patient's pain decreased to 8 at the time of discharge. She will follow up in the future as needed. [facility] [address] [place] [address] PAIN MANAGEMENT CONSULTATION Name: JOSE ENRIQUE MILES Room #: REG [facility] Dayday#: [id number] Admission: 08/16/19 Attend Phys: Addis Haskins MD Discharge: Date of : 43 Report #: [id number] We would like to thank you for letting us participate in her care. We hope she continues to improve. <ELECTRONICALLY SIGNED> By: Addis Haskins MD 08/30/19 0826 [id number] [id number] Addis Haskins MD /nt
== END | disposition home or self-care (01) ==
LOC: PAIN 06:55
DX: M54.5 Low back pain (principal); M54.16 Radiculopathy, lumbar region; G89.29 Other chronic pain; I10 Essential (primary) hypertension; E03.9 Hypothyroidism, unspecified; M06.9 Rheumatoid arthritis, unspecified; K21.9 Gastro-esophageal reflux disease without esophagitis; J45.909 Unspecified asthma, uncomplicated; Z86.73 Personal history of transient ischemic attack (TIA), and cerebral infarction without residual deficits; Z98.890 Other specified postprocedural states; Z79.899 Other long term (current) drug therapy; Z79.891 Long term (current) use of opiate analgesic

== ENCOUNTER → 2019-10-21 | Outpatient (CLI) | payer OTHER | LOC: NUC 10-14 14:43 | DX: R07.9 Chest pain, unspecified (principal); I10 Essential (primary) hypertension; M06.9 Rheumatoid arthritis, unspecified; E78.5 Hyperlipidemia, unspecified; Z87.891 Personal history of nicotine dependence; Z79.899 Other long term (current) drug therapy ==

== ENCOUNTER → 2019-10-23 | Outpatient (CLI) | payer OTHER | LOC: ULTRA 10:06 | DX: N63.12 Unspecified lump in the right breast, upper inner quadrant (principal) ==

== ENCOUNTER → 2020-01-10 | Outpatient (CLI) | payer OTHER ==
[~2020-01-10] VITALS: Ht 157.5 cm; Wt 78.7 kg
[~2020-01-10] MED LIST changes: +HYDROCODON-ACE1 EAC8 PO; +PROLIA60 MG/1 ML SUBQ
[2020-01-10 11:38] VITALS: BP 123/61
--- NOTE | 2020-01-10 12:10 | NUR ---
Pain Clinic Assessment: 1. History of Osteoarthritis: SPINE HIPS History of Rheumatoid Arthritis: DENIES 2. Height: 5 ft. 2 in. 157.5 cm. Weight: 173.6 lb. oz. 78.744 kg. Patient's BMI: 31.7 3. Vital Signs: BP: 123/61 Pulse: 68 Resp: 14 Temp: 02 Sat: 100 ECG Mon: 4. Pain Intensity: 9 5. Fall Risk: Dizziness: N Needs help standing or walking: N Fallen in the last 3 months: N Fall risk comments: 6. Patient on Blood Thinner: ASA/Dipyridamole(Aggrenox 7. History of Hypertension: Y 8. Opioid Therapy greater than 6 weeks: N Opiate Contract Signed: 9. Risk Assessment Tool Provided: LOW-1 10. Functional Assessment Tool: 11. Recreational Drug Use: Never Drug Type: Tobacco Use: Former Smoker Tobacco Type: Amount or Packs/day: How Many Years: Alcohol Use: No Frequency: Quant:
== END | disposition home or self-care (01) ==
LOC: PAIN 06:44
DX: M54.16 Radiculopathy, lumbar region (principal); G89.29 Other chronic pain; Z98.890 Other specified postprocedural states; Z87.891 Personal history of nicotine dependence; Z79.899 Other long term (current) drug therapy

== ENCOUNTER → 2020-04-14 | Outpatient (CLI) | payer OTHER | LOC: BC 04-06 11:29 → RAD 12:53 | DX: Z12.31 Encounter for screening mammogram for malignant neoplasm of breast (principal) ==

== ENCOUNTER → 2020-04-17 | Outpatient (CLI) | payer OTHER ==
[~2020-04-17] VITALS: Ht 157.5 cm; Wt 80.7 kg
--- NOTE | ~2020-04-17 | HPC ---
[facility] [address] [address] PAIN MANAGEMENT CONSULTATION Name: JOSE ENRIQUE MILES Room #: REG JONATHAN RobinHector#: [id number] Admission: 04/17/20 Attend Phys: Addis Haskins MD Discharge: Date of : 43 Report #: [id number] THIS REPORT FOR: cc: Mark Liriano MD, Mark A. MD Brown,Addis Kelsey MD ~ CC: Mark Haskins DATE OF SERVICE: 04/17/2020 CHIEF COMPLAINT: Return of back and leg pain. HISTORY: The patient is a 75-year-old female who has been followed in the pain clinic. She has history of lumbar radiculopathy. She has undergone epidural steroid injections. They have all been efficacious. Over the last few weeks, she has noticed an increasing amount of pain and discomfort. Pain is radiating down the hips, thighs and into the right ankle. It has been quite problematic over the last 3 days. She would like to undergo another epidural steroid injection. These have been helpful in the past. She has had no complication from them. She has not traumatized her back since we saw her last. There is no new change in bowel or bladder function. ALLERGIES: No known drug allergies. CURRENT MEDICATIONS: Tramadol 50 mg, Tylenol Arthritis 650 mg, oxybutynin 5 mg, Caltrate 600 mg/vitamin D, ascorbic acid t.i.d. 500 mg, Lipitor 10 mg, Claritin 10 mg, Cymbalta 30 mg, multivitamins, Centrum Silver, Aggrenox 25 mg b.i.d., the patient has held this medication. Flonase 0.5% spray, AccuNeb 2.5 mg t.i.d., Voltaren gel 1% to the affected area q.i.d., Flexeril 5 mg at bedtime, potassium 20 mEq, levothyroxine 75 mcg, folic acid 1 mg, Nexium 40 mg, methotrexate 2.5 mg 4 tablets weekly, ____ injection q. 6 months. PAIN CLINIC ASSESSMENT AND PQRS: 1. The patient has a history of osteoarthritis of the spine and hips. The patient states that she is being treated for rheumatoid arthritis. 2. Height 5 feet 2 inches, weight 177 pounds, BMI is 32.5. 3. Vital signs: Blood pressure 150/70, pulse 72, respiratory rate 16, room air saturation 100%. 4. Pain intensity /10. 5. Fall risk. The patient has not fallen in the last 3 months. 6. Blood thinner. The patient is on Aggrenox and has stopped taking this medication for the last few days in preparation for an injection. 7. History of hypertension. 8. Opioids greater than 6 weeks. 9. Risk assessment tool, [place] [address] PAIN MANAGEMENT CONSULTATION Name: SAM MILESGENIE Osuna Room #: REG OJNATHAN Naylor#: [id number] Admission: 04/17/20 Attend Phys: Addis Haskins MD Discharge: Date of : 43 Report #: [id number] 10. Functional assessment tool . 11. Recreational drug use. The patient denies. 12. Tobacco: The patient is a former smoker. 13. Alcohol. The patient denies frequent use of alcoholic beverages. PHYSICAL EXAMINATION: GENERAL: The patient is a well-developed, well-nourished black female, appears her stated age. She is alert and oriented x 3. Her affect is appropriate. Speech is fluent. HEENT: Normocephalic, atraumatic. Extraocular eye muscles intact. The patient is wearing glasses. NECK: Without adenopathy or JVD. HEART: Regular rate ____. LUNGS: Clear to auscultation. ABDOMEN: Nontender. Bowel sounds present. MUSCULOSKELETAL: Upper extremity muscle strength judged to be 5/5 for the major muscle groups in the upper extremity. The patient has some pain and discomfort in the lower portion of her back. Has pain that is radiating down the L5-S1 dermatomal distribution with a positive straight leg raise. IMPRESSION: 1. History of lumbar radiculopathy at L5-S1. 2. Rheumatoid arthritis, followed by Dr. Villalobos. 3. Hypothyroidism. 4. Gastroesophageal reflux. 5. Asthma. 6. Transient ischemic attack. RECOMMENDATIONS: We discussed treatment options with the patient. At this juncture, she would like to proceed with an epidural steroid injection to help quiet her pain. She is aware that opioid medications can become less effective over time. She is aware that the Covid-19 pandemic is around us. She has has been counseled regarding the problems with steroids. They can decrease one's immunity. We explained to the patient that should she get an infection with Covid-19 virus she would probably not do as well as she would, if she not had the injection. Overall, her pain is quite problematic. She would like to proceed with an injection. PROCEDURE NOTE: The patient was taken to the procedure area. She was then assisted in getting on the examination table. Her back was sterilely prepped with a Betadine solution. A 0.25% bupivacaine was infiltrated. A 17-gauge Tuohy with loss of resistance technique was used to gain access to the epidural space. There was no CSF, heme or paresthesia. A total of 80 mg Depo-Medrol at the L5-S1 area and 40 mg triamcinolone was injected. Fluoroscopy using anterior, posterior in conjunction with lateral viewing were used. The patient tolerated the procedure well. She remained in the Pain Clinic for an [facility] [address] [place] [address] PAIN MANAGEMENT CONSULTATION Name: JOSE ENRIQUE MILES Room #: REG [facility] Dayday#: [id number] Admission: 04/17/20 Attend Phys: Addis Haskins MD Discharge: Date of : 43 Report #: [id number] appropriate amount of time. She will follow up in the future as needed. We would like to thank you for letting us participate in her care. We hope she continues to improve. By: 0015 [id number] Addis Haskins MD /nt
[2020-04-17 12:46] VITALS: BP 150/70
--- NOTE | 2020-04-17 13:02 | NUR ---
Pain Clinic Assessment: 1. History of Osteoarthritis: SPINE HIPS History of Rheumatoid Arthritis: DENIES 2. Height: 5 ft. 2 in. 157.5 cm. Weight: 177.8 lb. oz. 80.650 kg. Patient's BMI: 32.5 3. Vital Signs: BP: 150/70 Pulse: 72 Resp: 16 Temp: 02 Sat: 100 ECG Mon: 4. Pain Intensity: 9 5. Fall Risk: Dizziness: N Needs help standing or walking: N Fallen in the last 3 months: N Fall risk comments: 6. Patient on Blood Thinner: ASA/Dipyridamole(Aggrenox 7. History of Hypertension: Y 8. Opioid Therapy greater than 6 weeks: N Opiate Contract Signed: 9. Risk Assessment Tool Provided: LOW-1 10. Functional Assessment Tool: 11. Recreational Drug Use: Never Drug Type: Tobacco Use: Former Smoker Tobacco Type: Amount or Packs/day: How Many Years: Alcohol Use: No Frequency: Quant:
== END | disposition home or self-care (01) ==
LOC: PAIN 06:57
DX: M54.16 Radiculopathy, lumbar region (principal); G89.29 Other chronic pain; I10 Essential (primary) hypertension; M06.9 Rheumatoid arthritis, unspecified; E03.9 Hypothyroidism, unspecified; K21.9 Gastro-esophageal reflux disease without esophagitis; J45.909 Unspecified asthma, uncomplicated; Z86.73 Personal history of transient ischemic attack (TIA), and cerebral infarction without residual deficits; Z98.890 Other specified postprocedural states; Z79.899 Other long term (current) drug therapy; Z87.891 Personal history of nicotine dependence

== ENCOUNTER → 2020-08-19 | Outpatient (CLI) | payer OTHER ==
[~2020-08-19] VITALS: Ht 157.5 cm; Wt 78.7 kg
[2020-08-19 09:29] VITALS: BP 131/68
--- NOTE | 2020-08-19 09:40 | NUR ---
Pain Clinic Assessment: 1. History of Osteoarthritis: SPINE HIPS History of Rheumatoid Arthritis: DENIES 2. Height: 5 ft. 2 in. 157.5 cm. Weight: 173.4 lb. oz. 78.654 kg. Patient's BMI: 31.7 3. Vital Signs: BP: 131/68 Pulse: 75 Resp: 14 Temp: 02 Sat: 100 ECG Mon: 4. Pain Intensity: 8 5. Fall Risk: Dizziness: N Needs help standing or walking: N Fallen in the last 3 months: Y Fall risk comments: 6. Patient on Blood Thinner: ASA/Dipyridamole(Aggrenox 7. History of Hypertension: Y 8. Opioid Therapy greater than 6 weeks: N Opiate Contract Signed: 9. Risk Assessment Tool Provided: LOW-1 10. Functional Assessment Tool: 11. Recreational Drug Use: Never Drug Type: Tobacco Use: Former Smoker Tobacco Type: Amount or Packs/day: How Many Years: Alcohol Use: No Frequency: Quant:
--- NOTE | 2020-08-27 09:20 | HPC ---
[facility] [address] [place] [address] PAIN MANAGEMENT CONSULTATION Name: JOSE ENRIQUE MILES Room #: REG JONATHAN Dayday#: [id number] Admission: 08/19/20 Attend Phys: Addis Haskins MD Discharge: Date of : 43 Report #: [id number] CC: MONICA Haskins DATE OF SERVICE: 08/19/2020 CHIEF COMPLAINT: I stopped my Aggrenox 9 days ago to have an injection. HISTORY: The patient is a 75-year-old female who has been seen in the Pain Clinic in the past because of chronic pain. She returns today with pain, which is radiating down in her low back and involving the left leg. She also has some pain and discomfort in her left shoulder. Pain in the low back area is more problematic. The pain in the lower portion of the back involves both buttocks area and radiates down to the posterior portion of her leg involving the knees. She notes and describes it as a sharp, aching, shooting pain. Rates it as an 8/10. Pain is worse with standing, walking, going up and down stairs. She is not sure of anything that alleviates it at this juncture. She would like to proceed with an epidural steroid injection, which has been helpful in the past. ALLERGIES: No known drug allergies. CURRENT MEDICATIONS: Tramadol, Tylenol Arthritis, oxybutynin 5 mg, Caltrate 600 mg, vitamin D, ascorbic acid t.i.d. 500 mg, Lipitor 10 mg, Claritin 10 mg, Cymbalta 30 mg, multivitamins, Centrum Silver, Aggrenox 25 mg b.i.d., Flonase nasal spray, AccuNeb 2.5 mg t.i.d., Voltaren gel to the affected area 1% q.i.d., Flexeril 5 mg at bedtime, potassium 20 mEq, levothyroxine 75 mcg, folic acid 1 mg, Nexium 40 mg, methotrexate 2.5 mg 4 tablets weekly, injections every 6 months. PAIN CLINIC ASSESSMENT/PQRS: 1. The patient does have a history of osteoarthritis of her spine and hip. The patient is being treated for rheumatoid arthritis. 2. Height 5 feet 2 inches, weight 173 pounds, BMI 31.7. 3. Vital signs: Blood pressure 131/68, pulse 75, respiratory rate 14, room air saturation 100%. 4. Pain intensity, 8/10. 5. Fall history: The patient has not fallen in the last 3 months. 6. Blood thinner. The patient is on a solution of Aggrenox, has not taken it for the last few days. 7. History of hypertension. The patient is being treated for hypertension. 8. Opioids greater than 6 weeks. The patient receives medication from her primary. 9. Risk assessment tool, low for opioid use. 10. Functional assessment tool, . 11. Recreational drug use. The patient denies. 12. Tobacco: The patient is a former smoker. 13. Alcohol. The patient denies more than infrequent use of alcohol. PHYSICAL EXAMINATION: GENERAL: The patient is a well-developed, well-nourished black female, appears her stated age. She is alert and oriented x 3. Her affect is appropriate. Speech is fluent. HEENT: Normocephalic, atraumatic. Extraocular eye muscles intact. Sclerae are nonicteric. The patient is wearing glasses. The patient has a facial covering. NECK: Without adenopathy or JVD. HEART: Regular rate. LUNGS: Clear. ABDOMEN: Nontender. MUSCULOSKELETAL: Upper extremity muscle strength judged to be 5-/5 for the major muscle groups in the upper extremity with some discomfort involving her left shoulder. The patient has pain that is radiating down the L5-S1 dermatomal distribution with positive straight leg raise. IMPRESSION: 1. History of lumbar radiculopathy, L5-S1. 2. Rheumatoid arthritis, treated by Dr. Villalobos. 3. Hypothyroidism. 4. Gastroesophageal reflux disease. 5. Asthma. 6. Transient ischemic attack history. RECOMMENDATIONS: We discussed treatment options with the patient. Risks and benefits of an epidural steroid injection were again discussed. Possible complications of the procedure were reviewed. They include but are not limited to infection, worsening pain, no improvement in pain, nerve damage. The patient is aware that COVID-19 is pandemic. Possibility of worsening of symptoms, should she become infected or possibly because steroids decrease in the immune response. The patient elects to proceed. PROCEDURE NOTE: The patient was taken to the procedure area. She was then assisted in getting on examination table. A pillow was placed on the abdomen to bolster and improve positioning. Her back was sterilely prepped and infiltrated with 0.25% bupivacaine at the L5-S1 area. A 25-gauge needle was used to anesthetize the area. A 17-gauge Tuohy at the L5-S1 area was then used to gain access to the epidural space. There was no CSF, heme or paresthesia. A total of 80 mg Depo-Medrol, 40 mg triamcinolone were injected. The patient tolerated the procedure well. There were no complications. She stayed in the Pain Clinic for an appropriate amount of time. Total of 12 seconds fluoroscopy time was used. She will follow up in the future as needed. We would like to thank you for letting us participate in her care. We hope she continues to improve. <ELECTRONICALLY SIGNED> By: Addis Haskins MD 08/27/20 0920 [id number] [id number] Addis Haskins MD /poncho
== END ==
LOC: PAIN 06:45
PROVIDERS: ATTEND Anesthesiology Pain Medicine
DX: M54.16 Radiculopathy, lumbar region (principal); M06.9 Rheumatoid arthritis, unspecified; E03.9 Hypothyroidism, unspecified; I10 Essential (primary) hypertension; K21.9 Gastro-esophageal reflux disease without esophagitis; Z86.73 Personal history of transient ischemic attack (TIA), and cerebral infarction without residual deficits; Z87.891 Personal history of nicotine dependence; Z79.899 Other long term (current) drug therapy; Z98.890 Other specified postprocedural states

== ENCOUNTER → 2020-09-01 | Outpatient (CLI) | payer OTHER | LOC: RAD 15:46 | PROVIDERS: ATTEND Internal Medicine | DX: R06.00 Dyspnea, unspecified (principal) ==

== ENCOUNTER → 2021-03-26 | Outpatient (CLI) | payer OTHER ==
[~2021-03-26] VITALS: Ht 157.5 cm; Wt 81.6 kg
[2021-03-26 14:36] VITALS: BP 144/64
--- NOTE | 2021-03-26 14:44 | NUR ---
Pain Clinic Assessment: 1. History of Osteoarthritis: SPINE HIPS History of Rheumatoid Arthritis: DENIES 2. Height: 5 ft. 2 in. 157.5 cm. Weight: 180.0 lb. oz. 81.648 kg. Patient's BMI: 32.9 3. Vital Signs: BP: 144/64 Pulse: 67 Resp: 14 Temp: 02 Sat: 99 ECG Mon: 4. Pain Intensity: 8 5. Fall Risk: Dizziness: N Needs help standing or walking: N Fallen in the last 3 months: N Fall risk comments: 6. Patient on Blood Thinner: ASA/Dipyridamole(Aggrenox 7. History of Hypertension: Y 8. Opioid Therapy greater than 6 weeks: N Opiate Contract Signed: 9. Risk Assessment Tool Provided: LOW-1 10. Functional Assessment Tool: 11. Recreational Drug Use: Never Drug Type: Tobacco Use: Former Smoker Tobacco Type: Amount or Packs/day: How Many Years: Alcohol Use: No Frequency: Quant:
== END | disposition home or self-care (01) ==
LOC: PAIN 10:47
PROVIDERS: ATTEND Anesthesiology Pain Medicine
DX: M54.16 Radiculopathy, lumbar region (principal); G89.29 Other chronic pain; G47.00 Insomnia, unspecified; M19.90 Unspecified osteoarthritis, unspecified site; Z98.890 Other specified postprocedural states; Z79.899 Other long term (current) drug therapy; Z87.891 Personal history of nicotine dependence

== ENCOUNTER → 2021-05-05 | Outpatient (CLI) | payer OTHER | LOC: BC 04-16 12:32 | PROVIDERS: ATTEND Internal Medicine | DX: Z12.31 Encounter for screening mammogram for malignant neoplasm of breast (principal); N60.82 Other benign mammary dysplasias of left breast; N60.81 Other benign mammary dysplasias of right breast; I70.203 Unspecified atherosclerosis of native arteries of extremities, bilateral legs ==

== ENCOUNTER → 2021-11-10 | Outpatient (CLI) | payer OTHER ==
[~2021-11-10] VITALS: Ht 157.5 cm; Wt 80.3 kg
[~2021-11-10] MED LIST changes: +FAMCYCLOVIR 50500 M1 PO
[2021-11-10 10:24] VITALS: BP 127/67
--- NOTE | 2021-11-10 10:45 | NUR ---
Pain Clinic Assessment: 1. History of Osteoarthritis: SPINE HIPS History of Rheumatoid Arthritis: DENIES 2. Height: 5 ft. 2 in. 157.5 cm. Weight: 177.0 lb. oz. 80.287 kg. Patient's BMI: 32.4 3. Vital Signs: BP: 127/67 Pulse: 71 Resp: 18 Temp: 02 Sat: 98 ECG Mon: 4. Pain Intensity: 8 5. Fall Risk: Dizziness: N Needs help standing or walking: Y Fallen in the last 3 months: N Fall risk comments: 6. Patient on Blood Thinner: ASA/Dipyridamole(Aggrenox 7. History of Hypertension: Y 8. Opioid Therapy greater than 6 weeks: N Opiate Contract Signed: 9. Risk Assessment Tool Provided: LOW-1 10. Functional Assessment Tool: 11. Recreational Drug Use: Never Drug Type: Tobacco Use: Former Smoker Tobacco Type: Amount or Packs/day: How Many Years: Alcohol Use: No Frequency: Quant:
== END | disposition home or self-care (01) ==
LOC: PAIN 07:03
PROVIDERS: ATTEND Anesthesiology Pain Medicine
DX: M54.16 Radiculopathy, lumbar region (principal); G89.29 Other chronic pain; Z98.890 Other specified postprocedural states; Z79.899 Other long term (current) drug therapy